=== PATIENT | female | born 1955 | race Caucasian/White ===

== ENCOUNTER 2024-05-24 14:10 | Emergency (ER) | payer OTHER ==
[~2024-05-24] VITALS: Ht 152.4 cm; Wt 104.3 kg
[2024-05-24] MEDS ORDERED: LASIX20 MG PO (15:40)
== END 2024-05-24 15:35 | disposition home or self-care (01) ==
LOC: ED 14:10
DX: I89.0 Lymphedema, not elsewhere classified (principal); Z88.8 Allergy status to other drugs, medicaments and biological substances